=== PATIENT | male | born 1985 | race Two or more races ===

== ENCOUNTER 2020-04-05 21:46 | Emergency (ER) | payer SELFPAY ==
[~2020-04-05] VITALS: Ht 162.6 cm; Wt 84.0 kg
--- NOTE | 2020-04-05 23:35 | PHYS DOC ---
Past Medical History Past Medical History: No Pertinent History Past Surgical History: No Surgical History Smoking Status: Never Smoker Alcohol Use: None General Adult EDM: Chief Complaint: FINGER INJURY HPI: HPI: Patient is a 34 year old male who presents with was using hedge tremors this evening when the part of the blade on the hedge tremor but his left tip of his fifth finger. This caused a superficial laceration that went from the posterior tip of the finger around cutting through the fourth half of the lateral nail. Patient denies pain at this time. He has full range of motion at all finger joints. There is no deformity. No bone or ligaments are seen. There is no foreign body seen. Patient states he does need a tetanus shot. Review of Systems: Review of Systems: Constitutional: Denies fever or chills. [] Eyes: Denies change in visual acuity. [] HENT: Denies nasal congestion or sore throat. [] Respiratory: Denies cough or shortness of breath. [] Cardiovascular: Denies chest pain or edema. [] GI: Denies abdominal pain, nausea, vomiting, bloody stools or diarrhea. [] : Denies dysuria. [] Musculoskeletal: Denies back pain or joint pain. [] Integument: Denies rash. Left fingertip laceration. [] Neurologic: Denies headache, focal weakness or sensory changes. [] Endocrine: Denies polyuria or polydipsia. [] Lymphatic: Denies swollen glands. [] Psychiatric: Denies depression or anxiety. [] Heart Score: Risk Factors: Risk Factors: DM, Current or recent (<one month) smoker, HTN, HLP, family history of CAD, obesity. Risk Scores: Score 0 - 3: 2.5% MACE over next 6 weeks - Discharge Home Score 4 - 6: 20.3% MACE over next 6 weeks - Admit for Clinical Observation Score 7 - 10: 72.7% MACE over next 6 weeks - Early Invasive Strategies Physical Exam: PE: Constitutional: Well developed, well nourished, no acute distress, non-toxic appearance. [] HENT: Normocephalic, atraumatic, bilateral external ears normal, oropharynx moist, no oral exudates, nose normal. [] Eyes: PERRLA, EOMI, conjunctiva normal, no discharge. [] Neck: Normal range of motion, no tenderness, supple, no stridor. [] Cardiovascular:Heart rate regular rhythm, no murmur [] Lungs & Thorax: Bilateral breath sounds clear to auscultation [] Abdomen: Bowel sounds normal, soft, no tenderness, no masses, no pulsatile ma sses. [] Skin: Warm, dry, no erythema, no rash. Left fingertip laceration with nailbed injury. [] Back: No tenderness, no CVA tenderness. [] Extremities: No tenderness, no cyanosis, no clubbing, ROM intact, no edema. [] Neurologic: Alert and oriented X 3, normal motor function, normal sensory function, no focal deficits noted. [] Psychologic: Affect normal, judgement normal, mood normal. [] Current Patient Data: Vital Signs: Vital Signs Date Time Temp Pulse Resp B/P (MAP) Pulse Ox O2 Delivery O2 Flow Rate FiO2 04/05/20 22:00 98.0 64 18 141/87 (105) 99 Room Air 98.0 EKG: EKG: [] Radiology/Procedures: Radiology/Procedures: [] Impression: [facility] [address] [place] [address] IMAGING REPORT Signed PATIENT: SAUL SMALLWOOD ACCOUNT: [id number] : 1985 LOCATION: ER AGE: 34 SEX: M EXAM STATUS: PRE ER ORD. PHYSICIAN: ZURDO ALCANTAR APRN REASON: laceration PROCEDURE: HAND LEFT 3V HAND LEFT 3V History: Reason: laceration / Spl. Instructions: / History: Technique: 3 views left hand Comparison: None. Findings: Tiny metallic density projecting over the volar aspect of the hand between the first and second metacarpals. Normal alignment. No fracture. Fifth digit soft tissue irregularity and swelling. Impression: 1. Punctate density projecting over the volar aspect of the hand. Recommend correlation for foreign body. 2. Fifth digit soft tissue injury. Electronically signed by: Joe Jones DO (04/05/2020 11:46 PM) [facility] DICTATED and SIGNED BY: JOE JONES DO DATE: 04/05/20 0112 Course & Med Decision Making: Course & Med Decision Making Pertinent Labs and Imaging studies reviewed. (See chart for details) See HPI. Alert and oriented x4. Speaks in full complete sentences. Skin pink warm and dry. Radial pulses strong present. Patient denies any numbness or tingling or coolness of the extremity. Laceration repair Location: Left fingertip Local anesthesia: 1% lidocaine Interrupted sutures/Internal sutures: Dermabond to the nail. 6 sutures with 4-0 Nerve/ligament/muscle damage: None. Cleaning and irrigation: Chlorhexidine and saline. No foreign body seen with flushing and exploration. The appropriate timeout was taken. The area was prepped and draped in the usual sterile fashion. The wound was copiously irrigated with normal saline and chlorhexidine. Patient tolerated well without complication. Dressing was applied to the area follow-up education is given to observe for signs and symptoms of infection, bleeding and to follow-up promptly if these occur. Patient can return in 48 hours for a wound recheck. Sutures to be removed in 7 to 10 days. Patient to follow-up with Dr Onofre within the next week. Dr. Myers read the x- ray as no acute findings. Dr. Myers stated okay to Dermabond together the nail. [] Dragon Disclaimer: Dragon Disclaimer: This electronic medical record was generated, in whole or in part, using a voice recognition dictation system. Departure Departure Impression: Primary Impression: Laceration Disposition: 01 HOME, SELF-CARE Condition: STABLE Referrals: MAR ONOFRE MD Patient Instructions: Fingertip Laceration, Nail Bed Injury Additional Instructions: Return to the emergency room for suture removal in 10 days. Follow-up with Dr. Onofre within the next week. Keep the area clean and covered. Watch for signs of infection. Justicifation of Admission Dx: Justifications for Admission: Justification of Admission Dx: N/A ZURDO ALCANTAR APRN Apr 05, 2020 23:35
[2020-04-05] MEDS ORDERED: LIDOCAINE 1% Multi-Dose 20 ML VIAL. INJ ONE (23:45)
[2020-04-05] MEDS ORDERED: DIPH,PERTUSS(ACELL),TET VAC/PF 0.5 ML SYRINGE. VAX IM ONE (23:45)
--- NOTE | 2020-04-05 23:49 | RAD ---
HAND LEFT 3V History: Reason: laceration / Spl. Instructions: / History: Technique: 3 views left hand Comparison: None. Findings: Tiny metallic density projecting over the volar aspect of the hand between the first and second metacarpals. Normal alignment. No fracture. Fifth digit soft tissue irregularity and swelling. Impression: 1. Punctate density projecting over the volar aspect of the hand. Recommend correlation for foreign body. 2. Fifth digit soft tissue injury. Electronically signed by: Joe Jones DO (04/05/2020 11:46 PM) [facility]
[2020-04-05] MEDS ORDERED: LIDOCAINE 1% Multi-Dose 20 ML VIAL. ONE (23:54)
[2020-04-06 00:44] VITALS: BP 144/74
== END 2020-04-06 00:44 | disposition home or self-care (01) ==
LOC: ER 21:46
DX: S61.317A Laceration without foreign body of left little finger with damage to nail, initial encounter (principal); Y28.8XXA Contact with other sharp object, undetermined intent, initial encounter; Y93.89 Activity, other specified; Y92.89 Other specified places as the place of occurrence of the external cause; Y99.8 Other external cause status
CPT/HCPCS: 12001; 73130; 90471; 90715; 99283